=== PATIENT | male | born 1985 | race Caucasian/White ===

== ENCOUNTER → 2020-09-06 | Day surgery (SDC) | payer OTHER ==
[~2020-09-06] VITALS: Ht 182.9 cm; Wt 107.5 kg
[~2020-09-06] MED LIST: HYDROCODON-ACE1 EAC2 PO; HYDROCODON-ACE1 EAC6 PO; STOOL SOFTENER100 M1 PO
[2020-09-06 12:45] LABS: HEMOGLOBIN 16.3 gm/dl (14.0-17.5); RED BLOOD COUNT 5.31 M/UL (4.20-5.50)
[2020-09-06 13:05] LABS: BUN/CREATININE RATIO 20 (0-10)
== END | disposition home or self-care (01) ==
LOC: OR 07:30
PROVIDERS: Orthopaedic Surgery
DX: S82.002A Unspecified fracture of left patella, initial encounter for closed fracture (principal); S76.112A Strain of left quadriceps muscle, fascia and tendon, initial encounter; I10 Essential (primary) hypertension; F17.210 Nicotine dependence, cigarettes, uncomplicated; W19.XXXA Unspecified fall, initial encounter; Z79.899 Other long term (current) drug therapy
CPT/HCPCS: 36415; 80048; 85027; C1713; J0690; J1100; J2250; J2405; J2704; J2795; J3010; J7120